=== PATIENT | male | born 1990 | race Caucasian/White ===

== ENCOUNTER 2017-07-23 22:42 | Emergency (ER) | payer OTHER ==
[~2017-07-23] VITALS: Ht 167.6 cm; Wt 66.9 kg
[2017-07-23 22:47] VITALS: TEMP 36.9; Ht 167.6 cm; Wt 66.9 kg
[2017-07-23] MEDS ORDERED: SODIUM CHLORIDE 0.9% 1000ML 1,000 ML IV STA (23:00)
[2017-07-23 23:26] LABS: BASO % 0.2 %; BASO ABS # 0.01 K/uL (0-0.2); EOS % 3.7 %; EOS ABS # 0.18 K/uL (0-0.5); HEMATOCRIT 44.6 % (42-52); HEMOGLOBIN 15.4 g/dL (14.0-18.0); IG# 0.02 K/uL (0.00-0.02); LYMPH % 26.6 %; LYMPH ABS # 1.31 K/uL (1.2-3.4); MEAN CELL VOLUME 93.1 fL (80-100); MEAN CORPUSCULAR HEMOGLOBIN 32.2 pg (25-34); MEAN CORPUSCULAR HGB CONC 34.5 g/dl (32-36); MEAN PLATELET VOLUME 10.3 fL (7.4-10.4); MONO % 6.7 %; MONO ABS # 0.33 K/uL (0.11-0.59); NEUT % 62.4 %; NEUT ABS # 3.08 K/uL (1.4-6.5); PLATELET COUNT 184 K/uL (130-400); RED CELL DISTRIBUTION WIDTH CV 12.1 % (11.5-14.5); WHITE BLOOD COUNT 4.93 K/uL (4.8-10.8)
--- NOTE | 2017-07-23 23:29 | EMERGENCY ROOM VISIT NOTE ---
History Report prepared by Jesusibisabella: Mikala Queen Under the Supervision of: Dr. Oksana Willis M.D. First contact with patient: 22:59 Chief Complaint: OVERDOSE (INTENTIONAL) Stated Complaint: OVERDOSE INTENTIONAL History of Present Illness The patient is a 26 year old male who presents to the Emergency Room with complaints of an episode of an Naproxen overdose occurring a couple hours ago. The patient states he took about 25 Naproxen pills over a 2-3 hour time frame. The patient states he feels nauseous but denies any vomiting. The patient states he stole the medication from his cell mate. Per officer, the prisoners are allowed to have over the counter medications in their cells. The patient takes lithium, Prozac, and Remeron. Source of History: patient Onset: a couple hour ago Position: other (generalized) Quality: other (drug overdose) Timing: other (episode) Associated Symptoms: + nausea, No vomiting Review of Systems See HPI for pertinent positives & negatives. A total of 10 systems reviewed and were otherwise negative. Past Medical & Surgical Medical Problems: (1) No Known Active Medical Problems Family History Patient reports no known family medical history. 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 General: Well-appearing male, in no significant distress. HEENT: Facial tattoo. No scleral icterus, PERRLA, neck supple. Atraumatic. Cardiovascular: Regular rate and rhythm, no extra sounds. Pulmonary: Clear to auscultation bilaterally, normal work of breathing. Abdomen: Soft, nontender, nondistended, positive bowel sounds. Musculoskeletal: Atraumatic, no peripheral edema. Neurologic: Patient awake alert and oriented x 3 Psych: Negative suicidal, negative homicidal. Skin: Warm, dry, no rash Medical Decision & Procedures Laboratory Results 07/23/17 23:13 Red Blood Count 4.79, Mean Corpuscular Volume 93.1, Mean Corpuscular Hemoglobin 32.2, Mean Corpuscular Hemoglobin Concent 34.5, Mean Platelet Volume 10.3, Neutrophils (%) (Auto) 62.4, Lymphocytes (%) (Auto) 26.6, Monocytes (%) (Auto) 6.7, Eosinophils (%) (Auto) 3.7, Basophils (%) (Auto) 0.2, Neutrophils # (Auto) 3.08, Lymphocytes # (Auto) 1.31, Monocytes # (Auto) 0.33, Eosinophils # (Auto) 0.18, Basophils # (Auto) 0.01 07/23/17 23:13 Test 07/23/17 23:12 07/23/17 23:13 07/23/17 23:57 Salicylates Level 3.6 mg/dl (2.8-20) Acetaminophen Level < 2 ug/ml (10-30) Coronita Level 0.6 mMOL/L (0.6-1.2) White Blood Count 4.93 K/uL (4.8-10.8) Red Blood Count 4.79 M/uL (4.7-6.1) Hemoglobin 15.4 g/dL (14.0-18.0) Hematocrit 44.6 % (42-52) Mean Corpuscular Volume 93.1 fL (80-100) Mean Corpuscular Hemoglobin 32.2 pg (25-34) Mean Corpuscular Hemoglobin Concent 34.5 g/dl (32-36) Platelet Count 184 K/uL (130-400) Mean Platelet Volume 10.3 fL (7.4-10.4) Neutrophils (%) (Auto) 62.4 % Lymphocytes (%) (Auto) 26.6 % Monocytes (%) (Auto) 6.7 % Eosinophils (%) (Auto) 3.7 % Basophils (%) (Auto) 0.2 % Neutrophils # (Auto) 3.08 K/uL (1.4-6.5) Lymphocytes # (Auto) 1.31 K/uL (1.2-3.4) Monocytes # (Auto) 0.33 K/uL (0.11-0.59) Eosinophils # (Auto) 0.18 K/uL (0-0.5) Basophils # (Auto) 0.01 K/uL (0-0.2) RDW Standard Deviation 41.0 fL (36.4-46.3) RDW Coefficient of Variation 12.1 % (11.5-14.5) Immature Granulocyte % (Auto) 0.4 % Immature Granulocyte # (Auto) 0.02 K/uL (0.00-0.02) Anion Gap 6.0 mmol/L (3-11) Est Creatinine Clear Calc Drug Dose 106.1 ml/min Estimated GFR () 126.8 Estimated GFR (Non- 109.4 BUN/Creatinine Ratio 18.3 (10-20) Calcium Level 8.4 mg/dl (8.5-10.1) Magnesium Level 2.0 mg/dl (1.8-2.4) Total Bilirubin 0.9 mg/dl (0.2-1) Direct Bilirubin 0.1 mg/dl (0-0.2) Aspartate Amino Transf (AST/SGOT) 17 U/L (15-37) Alanine Aminotransferase (ALT/SGPT) 22 U/L (12-78) Alkaline Phosphatase 53 U/L (45-117) Total Protein 7.3 gm/dl (6.4-8.2) Albumin 4.7 gm/dl (3.4-5.0) Thyroid Stimulating Hormone (TSH) 1.940 uIu/ml (0.300-4.500) Ethyl Alcohol mg/dL < 3.0 mg/dl (0-3) Urine Color YELLOW Urine Appearance CLEAR (CLEAR) Urine pH 6.0 (4.5-7.5) Urine Specific Nora 1.014 (1.000-1.030) Urine Protein NEG (NEG) Urine Glucose (UA) NEG (NEG) Urine Ketones NEG (NEG) Urine Occult Blood NEG (NEG) Urine Nitrite NEG (NEG) Urine Bilirubin NEG (NEG) Urine Urobilinogen NEG (NEG) Urine Leukocyte Esterase NEG (NEG) Urine Opiates Screen NEG (NEG) Urine Methadone, Qualitative NEG (NEG) Urine Barbiturates NEG (NEG) Urine Phencyclidine (PCP) Level NEG (NEG) Ur Amphetamine/Methamphetamine NEG (NEG) MDMA (Ecstasy) Screen NEG (NEG) Urine Benzodiazepines Screen NEG (NEG) Urine Cocaine Metabolite NEG (NEG) Urine Marijuana (THC) NEG (NEG) Laboratory results per my review. Medications Administered Medications (Trade) Dose Ordered Sig/Nicole Route Start Time Stop Time Status Last Admin Dose Admin Sodium Chloride 1,000 ml @ 999 mls/hr Q1H1M STAT IV 07/23/17 23:00 07/24/17 00:00 DC 07/23/17 23:25 999 MLS/HR ECG Indication: toxicologic Rate (beats per minute): 73 Rhythm: normal sinus Findings: no acute ischemic change, no ectopy, other (J-point elevation consistent with early repolarization) ED Course 2300: Ordered Sodium Chloride 1000 ml @ 999 mls/hr IV 2315: Past medical records reviewed. The patient was evaluated in room A11B. A complete history and physical examination was performed. 0105: Upon reevaluation, the patient appeared to have improvement of his symptoms. I discussed findings with the patient. He verbalized agreement of the treatment plan. The patient was discharged home. Medical Decision Differential diagnoses include: Intentional medication overdose, anxiety, depression, metabolic abnormality, renal failure, dehydration, substance abuse This patient was evaluated and appeared to be in no significant distress. The patient had no nausea and has had no vomiting. Laboratory work was obtained and is unrevealing. Patient denies that this was a suicidal gesture. The patient was hydrated with normal saline solution. Poison control was contacted did not feel any further monitoring was necessary as the ingestion took place over several hours 3-4 hours prior to arrival. The patient was discharged back to the [facility] for further management as needed. Medication Reconcilliation Current Medication List: was personally reviewed by me Blood Pressure Screening Patient's blood pressure: Normal blood pressure Impression Primary Impression: Naproxen overdose Scribe Attestation The scribe's documentation has been prepared under my direction and personally reviewed by me in its entirety. I confirm that the note above accurately reflects all work, treatment, procedures, and medical decision making performed by me. Departure Information Dispostion Home / Self-Care Referrals Josette PHELAN (PCP) Patient Instructions My [facility] Additional Instructions Diagnosis: Medication overdose Please drink plenty of clear fluids. Avoid medications in overdose. Please seek mental health attention. Return to the emergency department for worsening of symptoms or any medical concerns.
[2017-07-23 23:49] LABS: ALBUMIN 4.7 gm/dl (3.4-5.0); CALCIUM 8.4 mg/dl (8.5-10.1); CREATININE 0.96 mg/dl (0.60-1.40); POTASSIUM 3.7 mmol/L (3.5-5.1)
[2017-07-24] LABS: TOTAL PROTEIN 7.3 gm/dl (6.4-8.2)
[2017-07-24] MEDS ORDERED: FLUO20CA35 PO (00:30)
[2017-07-24] MEDS ORDERED: LITH1TAB PO (00:32)
[2017-07-24] MEDS ORDERED: MIRT15TA2 PO (00:33)
[2017-07-24 01:00] VITALS: BP 123/73; PULSE 76; O2SAT 99
== END 2017-07-24 01:06 | disposition home or self-care (01) ==
LOC: C.EDB 22:44 → C.EDA 07-24 01:06
DX: T39.312A Poisoning by propionic acid derivatives, intentional self-harm, initial encounter (principal); F17.200 Nicotine dependence, unspecified, uncomplicated

== ENCOUNTER 2017-07-29 16:11 | Emergency (ER) | payer OTHER ==
[~2017-07-29] VITALS: Ht 167.6 cm; Wt 67.3 kg
[~2017-07-29 16:11] MED LIST: FLUO20CA35 PO; LITH1TAB PO; MIRT15TA2 PO
[2017-07-29 16:21] VITALS: TEMP 37; Ht 167.6 cm; Wt 67.3 kg
[2017-07-29] MEDS ORDERED: OPTIRAY 320 IV PRN (16:30)
[2017-07-29 16:35] LABS: BASO % 0.3 %; BASO ABS # 0.02 K/uL (0-0.2); EOS % 0.3 %; EOS ABS # 0.02 K/uL (0-0.5); HEMATOCRIT 45.2 % (42-52); HEMOGLOBIN 15.8 g/dL (14.0-18.0); IG# 0.01 K/uL (0.00-0.02); LYMPH % 13.3 %; LYMPH ABS # 0.84 K/uL (1.2-3.4); MEAN CELL VOLUME 92.1 fL (80-100); MEAN CORPUSCULAR HEMOGLOBIN 32.2 pg (25-34); MEAN PLATELET VOLUME 10.5 fL (7.4-10.4); MONO % 6.6 %; MONO ABS # 0.42 K/uL (0.11-0.59); NEUT % 79.3 %; NEUT ABS # 5.01 K/uL (1.4-6.5); PLATELET COUNT 206 K/uL (130-400); RED CELL DISTRIBUTION WIDTH CV 12.2 % (11.5-14.5); RED CELL DISTRIBUTION WIDTH SD 41.3 fL (36.4-46.3); WHITE BLOOD COUNT 6.32 K/uL (4.8-10.8)
[2017-07-29 16:44] LABS: INR 1.2 (0.9-1.1); PTT PATIENT 25.7 SECONDS (21.0-31.0)
[2017-07-29 16:45] LABS: ISTAT CREATININE 0.9 mg/dl (0.6-1.3); ISTAT IONIZED CALCIUM 1.21 mmol/l (1.12-1.32)
[2017-07-29 16:54] LABS: CALCIUM 8.9 mg/dl (8.5-10.1); CREATININE 0.88 mg/dl (0.60-1.40); POTASSIUM 4.1 mmol/L (3.5-5.1)
--- NOTE | 2017-07-29 16:57 | DIAGNOSTIC IMAGING REPORT ---
CERVICAL SPINE W/O CLINICAL HISTORY: 26 years-old Male presenting with eval for fx, attempted hanging. TECHNIQUE: Multidetector CT of the cervical spine was performed without the use of intravenous contrast. IV contrast: None. A dose lowering technique was used consistent with the principles of ALARA (as low as reasonably achievable). COMPARISON: None. CT DOSE (mGy.cm): The estimated cumulative dose is 666.70 mGy.cm. FINDINGS: Herbicide Service Sales Representative topogram: Unremarkable. Bilateral fractures of the superior cornua of the thyroid cartilage as well as bilateral fractures of the arytenoid cartilage. The cricoid cartilage is intact. The hyoid bone is intact. No resulting narrowing of the airway. Normal cervical lordosis. Vertebral bodies maintain normal height and alignment. No acute fracture or subluxation. No degenerative change. No osseous neural foraminal or spinal canal narrowing. Subcutaneous edema suggested in the anterior soft tissue. Lung apices clear. IMPRESSION: 1. Bilateral acute fractures of the superior cornua of the thyroid cartilage and bilateral arytenoid cartilage. 2. No acute osseous injury of the cervical spine. Electronically signed by: Calin Jane M.D. 07/29/2017 4:55 PM Dictated Date/Time: 07/29/2017 4:50 PM
--- NOTE | 2017-07-29 17:01 | DIAGNOSTIC IMAGING REPORT ---
NECK ANGIO WITH CONTRAST CLINICAL HISTORY: 26 years-old Male presents with acute neck injury status post attempted hanging COMPARISON STUDY: CT cervical spine of same day TECHNIQUE: Following the IV administration of 116 of Optiray 320, CT angiogram of the neck was performed from the aortic arch to the skull base. Images are reviewed in the axial, sagittal, and coronal planes. 3-D MIPS images are created and assessed. IV contrast was administered without complication. All measurements were calculated based on NASCET criteria. A dose lowering technique was utilized adhering to the principles of ALARA. FINDINGS: CTA: Three-vessel aortic arch is present. The imaged bilateral subclavian arteries are patent. The bilateral common and internal carotid arteries are widely patent and within normal limits. The vertebral arteries appear codominant and are also widely patent and within normal limits. No aneurysm, dissection, high-grade stenosis or proximal branch occlusion identified. The basilar artery appears patent and within normal limits. Incidental note is made of origin of the right posterior cerebral artery. Imaged posterior arteries appear patent. CT NECK: Lung apices are clear without pneumothorax. No pathologic appearing adenopathy identified. No significant soft tissue swelling of the neck. No acute intracranial abnormality identified. Orbits are symmetric. Mild polypoid mucosal disease of the left maxillary sinus. Mild mucosal thickening of the inferior right frontal and bilateral ethmoid sinuses. IMPRESSION:Unremarkable CTA of the neck without evidence of acute vascular injury. No dissection, aneurysm, proximal branch occlusion or high-grade stenosis. The above report was generated using voice recognition software. It may contain grammatical, syntax or spelling errors. Electronically signed by: Sixto Garcia M.D. 07/29/2017 4:59 PM Dictated Date/Time: 07/29/2017 4:52 PM
[2017-07-29] MEDS ORDERED: MIRT15TA53 PO (18:21)
[2017-07-29] MEDS ORDERED: LITH1TAB PO (18:21)
[2017-07-29] MEDS ORDERED: FLUO20CA35 PO (18:21)
[2017-07-29 18:54] VITALS: BP 160/119; PULSE 84; O2SAT 98
--- NOTE | 2017-07-29 19:46 | EMERGENCY ROOM VISIT NOTE ---
History Report prepared by Magalis: Giselle Chaidez Under the Supervision of: Dr. Jarod Betancur M.D. 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 The patient presents to the ED by EMS. He was found unresponsive in his cell after trying to hang himself using a bedsheet. The patient's cellmate was in the room and alerted staff as soon as the patient became unconscious. When staff entered the cell, he was not blue but he was unconscious. The patient states that he tied the bedsheet to the bunk and put his feet on a stool. He slid down the bunk and then lost consciousness. He reports posterior neck pain. He denies any medical problems. 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 A total of 10 systems reviewed and were otherwise negative. Past Medical & Surgical Medical Problems: (1) No Known Active Medical Problems Family History Patient reports no known family medical history. Social History Smoking Status: Current Every Day Smoker Housing Status: other Occupation Status: other Current/Historical Medications Scheduled Fluoxetine (Prozac), 20 MG PO HS [place] Carbonate Ext Rel (Lithobid Ext Rel), 900 MG PO HS Mirtazapine (Mirtazapine), 15 MG PO HS Allergies Coded Allergies: No Known Allergies (Unverified , 07/29/17) Physical Exam Vital Signs Date Time Temp Pulse Resp B/P (MAP) Pulse Ox O2 Delivery O2 Flow Rate FiO2 07/29/17 18:54 84 22 160/119 98 Room Air 07/29/17 18:17 69 18 136/85 98 Room Air 07/29/17 17:37 79 20 138/93 98 Room Air 07/29/17 16:30 84 07/29/17 16:21 37.0 80 12 137/81 98 Room Air Physical Exam Constitutional: Vital signs reviewed. Eyes: Pupils are equal round reactive to light. Conjunctiva are noninjected. ENT: Pharynx is clear without erythema or exudate. Mucous membranes are moist. The patient is in a soft [place] collar. Midline tenderness to the mid cervical spine without step off. Slight bruising to the neck anteriorly. Respiratory: Clear to auscultation bilaterally. Breath sounds are equal bilaterally. No stridor. Cardiovascular: Regular rate and rhythm. No rubs or gallops. GI: Soft, nondistended and nontender. Bowel sounds are present. Musculoskeletal: No peripheral edema. Integumentary: No cyanosis. Neurological: The patient is awake and alert. No focal deficits. Psychiatric: Normal affect. Medical Decision & Procedures ER Provider Diagnostic Interpretation: Radiology results as stated below per my review and the radiologist's interpretation: CERVICAL SPINE W/O CLINICAL HISTORY: 26 years-old Male presenting with eval for fx, attempted hanging. TECHNIQUE: Multidetector CT of the cervical spine was performed without the use of intravenous contrast. IV contrast: None. A dose lowering technique was used consistent with the principles of ALARA (as low as reasonably achievable). COMPARISON: None. CT DOSE (mGy.cm): The estimated cumulative dose is 666.70 mGy.cm. FINDINGS: Chief Operator Lock Tender topogram: Unremarkable. Bilateral fractures of the superior cornua of the thyroid cartilage as well as bilateral fractures of the arytenoid cartilage. The cricoid cartilage is intact. The hyoid bone is intact. No resulting narrowing of the airway. Normal cervical lordosis. Vertebral bodies maintain normal height and alignment. No acute fracture or subluxation. No degenerative change. No osseous neural foraminal or spinal canal narrowing. Subcutaneous edema suggested in the anterior soft tissue. Lung apices clear. IMPRESSION: 1. Bilateral acute fractures of the superior cornua of the thyroid cartilage and bilateral arytenoid cartilage. 2. No acute osseous injury of the cervical spine. Electronically signed by: Calin Jane M.D. 07/29/2017 4:55 PM Dictated Date/Time: 07/29/2017 4:50 PM NECK ANGIO WITH CONTRAST CLINICAL HISTORY: 26 years-old Male presents with acute neck injury status post attempted hanging COMPARISON STUDY: CT cervical spine of same day TECHNIQUE: Following the IV administration of 116 of Optiray 320, CT angiogram of the neck was performed from the aortic arch to the skull base. Images are reviewed in the axial, sagittal, and coronal planes. 3-D MIPS images are created and assessed. IV contrast was administered without complication. All measurements were calculated based on NASCET criteria. A dose lowering technique was utilized adhering to the principles of ALARA. FINDINGS: CTA: Three-vessel aortic arch is present. The imaged bilateral subclavian arteries are patent. The bilateral common and internal carotid arteries are widely patent and within normal limits. The vertebral arteries appear codominant and are also widely patent and within normal limits. No aneurysm, dissection, high-grade stenosis or proximal branch occlusion identified. The basilar artery appears patent and within normal limits. Incidental note is made of origin of the right posterior cerebral artery. Imaged posterior arteries appear patent. CT NECK: Lung apices are clear without pneumothorax. No pathologic appearing adenopathy identified. No significant soft tissue swelling of the neck. No acute intracranial abnormality identified. Orbits are symmetric. Mild polypoid mucosal disease of the left maxillary sinus. Mild mucosal thickening of the inferior right frontal and bilateral ethmoid sinuses. IMPRESSION:Unremarkable CTA of the neck without evidence of acute vascular injury. No dissection, aneurysm, proximal branch occlusion or high-grade stenosis. The above report was generated using voice recognition software. It may contain grammatical, syntax or spelling errors. Electronically signed by: Sixto Garcia M.D. 07/29/2017 4:59 PM Dictated Date/Time: 07/29/2017 4:52 PM Laboratory Results 07/29/17 16:24 Red Blood Count 4.91, Mean Corpuscular Volume 92.1, Mean Corpuscular Hemoglobin 32.2, Mean Corpuscular Hemoglobin Concent 35.0, Mean Platelet Volume 10.5, Neutrophils (%) (Auto) 79.3, Lymphocytes (%) (Auto) 13.3, Monocytes (%) (Auto) 6.6, Eosinophils (%) (Auto) 0.3, Basophils (%) (Auto) 0.3, Neutrophils # (Auto) 5.01, Lymphocytes # (Auto) 0.84, Monocytes # (Auto) 0.42, Eosinophils # (Auto) 0.02, Basophils # (Auto) 0.02 07/29/17 16:24 Test 07/29/17 16:24 07/29/17 16:31 White Blood Count 6.32 K/uL (4.8-10.8) Red Blood Count 4.91 M/uL (4.7-6.1) Hemoglobin 15.8 g/dL (14.0-18.0) Hematocrit 45.2 % (42-52) Mean Corpuscular Volume 92.1 fL (80-100) Mean Corpuscular Hemoglobin 32.2 pg (25-34) Mean Corpuscular Hemoglobin Concent 35.0 g/dl (32-36) Platelet Count 206 K/uL (130-400) Mean Platelet Volume 10.5 fL (7.4-10.4) Neutrophils (%) (Auto) 79.3 % Lymphocytes (%) (Auto) 13.3 % Monocytes (%) (Auto) 6.6 % Eosinophils (%) (Auto) 0.3 % Basophils (%) (Auto) 0.3 % Neutrophils # (Auto) 5.01 K/uL (1.4-6.5) Lymphocytes # (Auto) 0.84 K/uL (1.2-3.4) Monocytes # (Auto) 0.42 K/uL (0.11-0.59) Eosinophils # (Auto) 0.02 K/uL (0-0.5) Basophils # (Auto) 0.02 K/uL (0-0.2) RDW Standard Deviation 41.3 fL (36.4-46.3) RDW Coefficient of Variation 12.2 % (11.5-14.5) Immature Granulocyte % (Auto) 0.2 % Immature Granulocyte # (Auto) 0.01 K/uL (0.00-0.02) Prothrombin Time 12.8 SECONDS (9.0-12.0) Prothromb Time International Ratio 1.2 (0.9-1.1) Activated Partial Thromboplast Time 25.7 SECONDS (21.0-31.0) Partial Thromboplastin Ratio 1.0 Est Creatinine Clear Calc Drug Dose 115.7 ml/min Estimated GFR () 138.4 Estimated GFR (Non- 119.4 BUN/Creatinine Ratio 12.5 (10-20) Calcium Level 8.9 mg/dl (8.5-10.1) Salicylates Level < 1.7 mg/dl (2.8-20) Acetaminophen Level < 2 ug/ml (10-30) Bedside Hemoglobin 15.3 g/dl (14.0-18.0) Bedside Hematocrit 45 % (42-52) Bedside Sodium 142 mEq/L (135-144) Bedside Potassium 4.0 mEq/L (3.3-5.0) Bedside Chloride 104 mEq/L (101-112) Bedside Total CO2 24 mEq/l (24-31) Anion Gap 19.0 mmol/L (16-25) Bedside Blood Urea Nitrogen 11 mg/dl (7-18) Bedside Creatinine 0.9 mg/dl (0.6-1.3) Bedside Glucose (other) 140 mg/dl (70-99) Bedside Ionized Calcium (Armaan) 1.21 mmol/l (1.12-1.32) Laboratory results as reviewed by me. ED Course 1614: The patient was evaluated in room B2. A complete history and physical exam was performed. 1713: I reevaluated the patient. He reports his pain is mostly posterior. He is talking easily. He has no difficulty breathing. 1725: I discussed the patient's case with Dr. Cheung, [facility] ENT. He recommends transfer as he does not do laryngeal trauma. 1727: I reevaluated the patient. I updated him on the results and treatment plan. He will be transferred for further management. 1738: I discussed the patient's case with Dr. Wick, [facility] trauma surgery. He needs to talk to ENT first before accepting the patient. He will contact ENT. 1749: I discussed the patient's case with the on-call ENT doctor at [facility]. The patient would likely need a higher level of care and recommends transfer to [facility] or another tertiary care facility. 1753: I reevaluated the patient. I spoke to the patient and the guards who request transfer to [facility]. 1813: I reevaluated the patient. He is still awake, alert, and talking easily. 1815: I discussed the patient's case with Dr. Fletcher, [facility] emergency medicine. The patient has been accepted for transfer. He is arranging for [facility]. 1828: I reevaluated the patient. He has no hoarseness to his voice. He has no complaints other than soreness to the neck. Medical Decision This is a 26-year-old male who presents after trying to hang himself. Differential diagnosis includes cervical fracture, arterial dissection, laryngeal trauma, strain, contusion. I did perform a limited focused review of portions of the patient's old chart on the electronic medical record. The patient was here July 23 after intentional overdose with naproxen. He was evaluated here and discharged back to long-term. I did evaluate the patient as noted above. IV access was established. The patient was placed on a continuous director ambulatory. I did order and review the patient's blood work as noted in the electronic medical record. I did order a CT of the cervical spine and CT angiogram the neck. I did review the images myself as well as the radiology report as described above. He does not have any evidence of cervical fracture. He does have laryngeal trauma as noted above. I did discuss the case with our ENT doctor who felt the patient should be transferred. Initially I talked to [facility]. I spoke to the trauma surgeon as well as the ENT physician at [place]. The ENT physician felt that the patient should be transferred to a higher level of care. After discussion with the patient and the guards he was transferred to [facility]. I did speak to the ED physician there who accepted him for transfer. He was sent by their transportation because of potential airway decompensation. I did reassess the patient multiple times in the ED. He did not have any hoarseness of his voice or difficulty breathing. He was transferred in good condition via helicopter. Medication Reconcilliation Current Medication List: was personally reviewed by me Blood Pressure Screening Patient's blood pressure: Elevated blood pressure Blood pressure disposition: Elevated BP felt to be situational Consults Time Called: 1709 Consulting Physician: Dr. Cheung, [facility] Returned Call: 1727 I discussed the patient's case with him. He recommends transfer as he does not do laryngeal trauma. Additional Consults: Time Called: 1729 Consulted Physician: Dr. Wick, [facility] trauma surgery Returned Call: 1731 Additional Comments: I discussed the patient's case with him. He needs to talk to ENT first before accepting the patient. He will contact ENT. Time Called: 1740 Consulted Physician: the on-call ENT doctor at [facility] Returned Call: 1740 Additional Comments: I discussed the patient's case with them. The patient would likely need a higher level of care and recommends transfer to [facility] or another tertiary care facility. Impression Primary Impression: Laryngeal trauma Additional Impression: Suicide attempt Scribe Attestation The scribe's documentation has been prepared under my direct and personally reviewed by me in its entirety. I confirm that the note above accurately reflects all work, treatment, procedures, and medical decision making performed by me. Departure Information Dispostion Transfer Acute Care Facility Referrals Josette PHELAN (PCP) Problem Qualifiers Primary Impression: Laryngeal trauma Encounter type: initial encounter Qualified Codes: S19.81XA - Other specified injuries of larynx, initial encounter
== END 2017-07-29 19:10 | disposition short-term general hospital (02) ==
LOC: EDBD 16:11 → C.EDB 16:13
DX: S19.81XA Other specified injuries of larynx, initial encounter (principal); X83.8XXA Intentional self-harm by other specified means, initial encounter; F17.200 Nicotine dependence, unspecified, uncomplicated